=== PATIENT | male | born 1955 | race Caucasian/White ===

== ENCOUNTER 2020-08-07 11:56 | Emergency (ER) | payer SELFPAY ==
--- NOTE | 2020-08-07 14:23 | ER Document Report ---
ED General - General Chief Complaint: Dizziness Stated Complaint: NAUSEA/DIZZINESS Time Seen by Provider: 08/07/20 14:23 - HPI Notes: 65-year-old male presents with dizziness. Patient states that this morning around 0050 he woke up because he thought his CPAP smelled bad. He got up to use the restroom and had onset of room spinning dizziness. He states that he had to spend the rest of the night on the bathroom floor because he was unable to get up, he sitting or standing up provokes his symptoms. The dizziness has caused some nausea and vomiting, now so is more just having dry heaves. He denies a history of vertigo but states he has been told before that his eyes do not keep up with his head and he is very easily gets motion sickness. He states that at one point he was prescribed meclizine several years ago after knee replacement surgery. He denies numbness or weakness or headache. - Related Data Allergies/Adverse Reactions: No Known Allergies Allergy (Unverified 08/07/20 12:57) Home Medications: ASA 81, amitriptyline Past Medical History - General Information source: Patient - Social History Smoking Status: Never Smoker Family History: Other - Past Medical History Cardiac Medical History: Reports: Hx Hypertension Past Surgical History: Reports: Hx Oral Surgery - bilateral knee replacement, left shoulder Review of Systems - Review of Systems Constitutional: denies: Fever EENT: No symptoms reported Cardiovascular: denies: Chest pain Respiratory: denies: Short of breath Gastrointestinal: Nausea, Vomiting. denies: Abdominal pain Genitourinary: No symptoms reported Male Genitourinary: No symptoms reported Musculoskeletal: No symptoms reported Skin: No symptoms reported Hematologic/Lymphatic: No symptoms reported Neurological/Psychological: See HPI Physical Exam - Vital signs Vitals: Temp Pulse Resp BP Pulse Ox 97.9 F 92 20 115/58 L 98 08/07/20 12:09 08/07/20 12:09 08/07/20 12:09 08/07/20 12:09 08/07/20 12:09 - General General appearance: Appears well, Alert In distress: None - HEENT Head: Normocephalic, Atraumatic Extraocular movements intact: Yes Pupils: PERRL Neck: Normal - Respiratory Breath sounds: Normal - Cardiovascular Rhythm: Regular Heart sounds: Normal auscultation - Abdominal Tenderness: Nontender - Extremities General upper extremity: Normal ROM General lower extremity: Normal ROM. 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 No: Pronator drift Sensory: Normal Notes: Patient had 2-3 beats of fast beating horizontal nystagmus, quickly extinguishable when going from lying to sitting position - Psychological Associated symptoms: Normal affect - Skin Skin Temperature: Warm Course - Re-evaluation Re-evalutation: 65-year-old male here with room spinning dizziness with associated nausea/vomiting, onset this morning. He is hemodynamically stable, no focal neuro deficits, he does have some quick beating extinguishable horizontal nystagmus when going from lying to sitting. I suspect BBPV. Sound like he may have a history of this as well. I have a low suspicion for acute intracranial abnormality, however given his age will obtain CT head to rule out obvious structural pathology. Will trial fluids, Zofran and meclizine for symptoms. 08/07/20 15:38 No leukocytosis or left shift. No acute anemia. Electrolytes within normal limits. Creatinine within normal limits. 08/07/20 16:58 CT head negative. Patient reported resolution of his symptoms. He was updated on work-up. Prescribed meclizine and Zofran. He was given return precautions, stable time discharge. - Vital Signs Vital signs: Temp Pulse Resp BP Pulse Ox 97.9 F 92 20 115/58 L 98 08/07/20 12:09 08/07/20 13:03 08/07/20 13:03 08/07/20 13:03 08/07/20 13:03 - Laboratory Result Diagrams: 08/07/20 12:20 08/07/20 12:20 Laboratory results interpreted by me: 08/07/20 08/07/20 12:20 12:20 Lymph % (Auto) 12.5 L Seg Neutrophils % 80.9 H Glucose 136 H - Diagnostic Test Radiology reviewed: Image reviewed, Reports reviewed - EKG Interpretation by Me Additional EKG results interpreted by me: EKG as interpreted by me. Normal sinus rhythm, rate 91. Mild widening of QRS, 110 ms duration, IVCD likely. QTc within normal limits. No ST segment yamil vation. Discharge - Discharge Clinical Impression: Vertigo Disposition: HOME, SELF-CARE Instructions: Meclizine ([facility]), Vertigo ([facility]) Additional Instructions: Use meclizine as needed for vertigo, you may use up to 3 times a day, would recommend keeping at bedside so you can take it when you wake up in the morning. He may also use Zofran for nausea/vomiting. Please have close follow-up with your primary care doctor peer return to the emergency department for any concerning worsening symptoms. Prescriptions: Meclizine HCl [Antivert 25 mg Tablet] 25 mg PO TID PRN #21 tablet PRN Reason: Ondansetron [Zofran Odt 4 mg Tablet] 1 tab PO Q4H PRN #15 tab.rapdis PRN Reason: For Nausea/Vomiting
[2020-08-07] MEDS ORDERED: RINGERS SOLUTION,LACTATED 1,000 ML IV ONE (14:42)
[2020-08-07] MEDS ORDERED: ONDANSETRON HCL INJ/PF 4 MG/2 ML SDV IV ONE (14:52)
[2020-08-07] MEDS ORDERED: MECLIZINE HCL 25 MG TABLET PO ONE (14:52)
[2020-08-07 15:09] LABS: ABSOLUTE LYMPHOCYTES (AUTO) 1.1 10^3/uL (0.5-4.7); ABSOLUTE MONOCYTES (AUTO) 0.6 10^3/uL (0.1-1.4); ABSOLUTE NEUT (AUTO) 7.3 10^3/uL (1.7-8.2); BASOPHILS % (AUTO) 0.2 % (0-2); EOSINOPHILS % (AUTO) 0.2 % (0-6); HEMATOCRIT 45.6 % (37.9-51.0); HEMOGLOBIN 15.5 g/dL (13.5-17.0); LYMPHOCYTES % (AUTO) 12.5 % (13-45); MEAN CORPUSCULAR HEMOGLOBIN 29.3 pg (27.0-33.4); MEAN CORPUSCULAR VOLUME 86 fl (80-97); MONOCYTES % (AUTO) 6.2 % (3-13); PLATELET COUNT 233 10^3/uL (150-450); RED BLOOD COUNT 5.28 10^6/uL (4.35-5.55); RED CELL DISTRIBUTION WIDTH 13.9 % (11.5-14.0); SEGMENTED NEUTROPHILS % (AUTO) 80.9 % (42-78); TOTAL CELLS COUNTED % (AUTO) 100 %
[2020-08-07 15:14] LABS: ANION GAP 10 (5-19); BLOOD UREA NITROGEN 20 mg/dL (7-20); CALCIUM 9.8 mg/dL (8.4-10.2); CARBON DIOXIDE 24 mmol/L (22-30); CHLORIDE 104 mmol/L (98-107); GLUCOSE 136 mg/dL (75-110); POTASSIUM 4.1 mmol/L (3.6-5.0)
--- NOTE | 2020-08-07 16:32 | RADIOLOGY REPORT (SQ) ---
EXAM DESCRIPTION: CT HEAD WITHOUT IMAGES COMPLETED DATE/TIME: 08/07/2020 4:19 pm REASON FOR STUDY: dizziness, eval obvious mass COMPARISON: None. TECHNIQUE: Axial images acquired through the brain without intravenous contrast. Images reviewed wit h bone, brain and subdural windows. Images stored on PACS. All CT scanners at this facility use dose modulation, iterative reconstruction, and/or weight based d osing when appropriate to reduce radiation dose to as low as reasonably achievable (ALARA). [facility]: Dose Right [facility]: CareDose [facility]: Dose Right [facility]: Teradose 4D [facility]: Smart [employer] RADIATION DOSE: CT Rad equipment meets quality standard of care and radiation dose reduction techniq ues were employed. CTDIvol: 53.2 mGy. DLP: 1017 mGy-cm.. LIMITATIONS: None. FINDINGS: VENTRICLES: Normal size and contour. CEREBRUM: No masses. No hemorrhage. No midline shift. Age appropriate white matter. No evidence for a cute infarction. CEREBELLUM: No masses. No hemorrhage. No alteration of density. No evidence for acute infarction. EXTRA-AXIAL SPACES: No fluid collections. ORBITS AND GLOBE: No intra- or extraconal masses. Normal contour of globe without masses. CALVARIUM: No fracture. PARANASAL SINUSES: No fluid or mucosal thickening. SOFT TISSUES: No mass or hematoma. OTHER: No other significant finding. IMPRESSION: NO ACUTE INTRACRANIAL FINDINGS. EVIDENCE OF ACUTE STROKE: NO. TECHNICAL DOCUMENTATION: JOB ID: [id number] [place]-72 Quality ID # [id number]: Final reports with documentation of one or more dose reduction techniques (e.g., Au tomated exposure control, adjustment of the mA and/or kV according to patient size, use of iterative reconstruction technique) 2010 [employer]- All Rights Reserved Reading location - IP/workstation name: [email or web address]
[2020-08-07 16:42] VITALS: BP 124/80
--- NOTE | 2020-08-07 21:50 | EKG REPORT ---
SEVERITY:- ABNORMAL ECG - SINUS RHYTHM NONSPECIFIC INTRAVENTRICULAR CONDUCTION DELAY : Confirmed by: Maru Loomis 07-Aug-2020 21:49:32
== END 2020-08-07 16:45 | disposition home or self-care (01) ==
LOC: ER 11:56
DX: R42 Dizziness and giddiness (principal); R11.2 Nausea with vomiting, unspecified; I10 Essential (primary) hypertension
CPT/HCPCS: 93005; 99285; 96361; 96374; 36415; 85025; 80048; 70450; 93010; J2405; J7120